=== PATIENT | male | born 1995 | race Two or more races ===

== ENCOUNTER 2017-01-05 15:35 | Emergency (ER) | payer MEDICAID, OTHER ==
[~2017-01-05] VITALS: Wt 113.6 kg
[~2017-01-05 15:35] MED LIST: IBUP800T25 PO
--- NOTE | 2017-01-05 17:05 | ERD ---
ER Documentation Chief Complaint Chief Complaint Suture removal HPI The patient is a 21-year-old male who presents to the Emergency Department for suture removal. The patient reports that 14 days ago he got startled, and in swinging his arm back, hit a piece of glass, lacerating the right upper extremity. He presented to an Emergency Department in [place], at which time sutures were placed to the right upper extremity. He has been caring for his wound as directed, and notes no current pain, swelling, redness, drainage, bleeding. No restricted range of motion. No numbness, tingling, weakness of the distal extremity. Tetanus is up-to-date. No other complaints at this time. ROS All systems reviewed and are negative except as per history of present illness. Medications Home Meds Active Scripts Ibuprofen* (Motrin*) 800 Mg Tab, 800 MG PO Q6, #30 TAB Prov:KARAN FOOTE PA-C 01/13/16 PMhx/Soc History of Surgery: No Anesthesia Reaction: No Hx Neurological Disorder: No Hx Respiratory Disorders: No Hx Cardiac Disorders: No Hx Psychiatric Problems: No Hx Miscellaneous Medical Probl: No Hx Alcohol Use: No Hx Substance Use: No Hx Tobacco Use: No Physical Exam Vitals Vital Signs Date Time Temp Pulse Resp B/P Pulse Ox O2 Delivery O2 Flow Rate FiO2 01/05/17 15:54 97.0 89 20 146/82 100 Physical Exam Const: Well-developed, well-nourished, in no acute distress. Head: Atraumatic. Normocephalic. Eyes: Normal Conjunctiva ENT: Normal External Ears, Nose and Mouth. Neck: Full range of motion. Supple. Resp: Clear to auscultation bilaterally Cardio: Regular rate and rhythm Abd: Soft, non tender, non distended. Normal bowel sounds Skin: Well-healed, well-approximated laceration to the posterior aspect of the right upper arm, proximal to the elbow, with [address] No wound dehiscence. No drainage. No bleeding. No swelling, erythema, warmth or tenderness. Ext: No cyanosis, or edema. Moving all extremities. Compartments are soft. Neur: Awake and alert Psych: Cooperative. Appropriate. Procedures/MDM PROCEDURE NOTE: Suture Removal PROCEDURE: Removal of previously placed sutures DESCRIPTION OF REPAIR: The wound demonstrates no evidence of infection with adequate tensile strength at the wound margins at this time to warrant suture removal. Sutures were removed individually using scissors and forceps, with a total of 7 sutures removed. Re-examination of the wound following the procedure reveals no evidence of any retained foreign bodies and no dehiscence. The patient tolerated the procedure well without complications. Standard post- procedure care was explained and return precautions were given. MEDICAL DECISION MAKING: This is a 21-year-old male presenting to the Emergency Department for for removal of previously placed sutures to the right upper extremity. The patient had no significant acute abnormalities on physical examination, and vital signs were stable. He had good wound closure and good wound approximation, with no evidence of dehiscence. The wound is clean, dry and intact with no evidence of purulent drainage, bleeding or infection. Sutures were removed with no present complications. At this time, the patient is in stable condition and therefore can be discharged home with strict return precautions for signs of deteriorating or worsening condition, the development of any neurovascular deficits, erythema, drainage, infection, fevers, or any other concerning symptoms. The patient is instructed to follow up with their primary care provider for reevaluation and further management within 2 to 3 days , or to return to the ER sooner for any new or worsening symptoms. I shared my medical decision making and plan with the patient and they verbally understand and agree with the plan for further observation and care as an outpatient. At the time of discharge all questions were answered. Departure Diagnosis: Primary Impression: Encounter for removal of sutures Condition: Stable Patient Instructions: Suture Removal, No Complication Additional Instructions: Call your primary care doctor TOMORROW for an appointment during the next 2-3 days.See the doctor sooner or return here if your condition worsens before your appointment time. SARA CARDENAS PA-C Jan 05, 2017 17:05
== END 2017-01-05 18:35 | disposition left against medical advice (07) ==
LOC: FTE 15:35
DX: Z48.02 Encounter for removal of sutures (principal)
CPT/HCPCS: 99281

== ENCOUNTER 2017-11-23 22:21 | Emergency (ER) | END 2017-11-24 02:00 | disposition home or self-care (01) ==

== ENCOUNTER 2018-02-04 23:10 | Emergency (ER) | END 2018-02-05 02:42 | disposition home or self-care (01) ==